=== PATIENT | female | born 1945 ===

== ENCOUNTER 2017-08-30 08:01 | Day surgery (SDC) | payer BC ==
[2017-08-27 09:34] VITALS: BMI 23.2
[2017-08-30] MEDS ORDERED: Propofol 10 mg/ml Inj (20 ML) ONE (09:16)
[2017-08-30] MEDS ORDERED: Succinylcholine Chloride 20 mg/ml Syr (5 ml) IV ONE (09:19)
[2017-08-30] MEDS ORDERED: Rocuronium 10 mg/ml (5 ml) ONE (09:19)
[2017-08-30] MEDS ORDERED: Bupivacaine-Epi 0.5%-1:200,000 PF Inj IJ ONE (09:45)
[2017-08-30] MEDS ORDERED: ceFAZolin IV 1 gm in Dextrose 1 GM/50 ML BAG IVPB ONE (09:59)
[2017-08-30] MEDS ORDERED: Neostigmine Methylsulfate 3mg/3ml Syringe IV ONE (10:13)
[2017-08-30] MEDS ORDERED: Oxycodone/Acetaminophen 5/325 mg Tab PO PRN (10:54)
[2017-08-30] MEDS ORDERED: HYDROmorphone 0.5 mg/0.5 ml ISec IVP PRN (10:56)
--- NOTE | 2017-08-30 10:58 | PCM.SURG1 ---
Surgeon's Initial Post Op Note - Surgeon's Notes Surgeon: Dr. Malhotra Supervisor Capacitor Processing: zaid Mcgovern PGY2 Type of Anesthesia: General Endo Pre-Operative Diagnosis: Cholelithiasis Operative Findings: large gallstones Post-Operative Diagnosis: Same Operation Performed: Lap daniel Specimen/Specimens Removed: Gallbladder Estimated Blood Loss: EBL {In ML}: 10 Blood Products Given: N/A Drains Used: No Drains Post-Op Condition: Good Date of Surgery/Procedure: 08/30/17 Time of Surgery/Procedure: 10:57
[2017-08-30] MEDS ORDERED: Lactated Ringer's 1,000 ML IV SCH (11:00)
[2017-08-30] MEDS ORDERED: Lactated Ringer's 500 ML IV ONE (12:00)
[2017-08-30 13:20] VITALS: BP 117/62; PULSE 84; RESP 15; TEMP 97.6; O2SAT 96
--- NOTE | 2017-08-30 20:23 | OP ---
PROCEDURE DATE: 08/30/2017 PREOPERATIVE DIAGNOSES: Chronic cholecystitis and cholelithiasis. POSTOPERATIVE DIAGNOSES: Chronic cholecystitis and cholelithiasis. PROCEDURE PERFORMED: Laparoscopic cholecystectomy. SURGEON: Mark Malhotra MD. FOOD SAFETY SCIENTIST: Danyelle Mcgovern. FINDINGS: The gallbladder was markedly distended, it was enlarged containing multiple large stones, common duct appeared to be within normal limits. No other pathology noted. DESCRIPTION OF PROCEDURE: Under general anesthesia, the patient was prepared and draped in the usual sterile fashion. CO2 was insufflated through a Veress needle inserted at the umbilicus. A 10 mm trocar was then inserted through which a laparoscope was inserted. Under direct vision, a 5 mm epigastric port and a 5 mm right upper quadrant ports were inserted. The patient was placed in the reversed Trendelenburg position, turned over towards the left side. Fundus was grasped, traction was applied. Cystic duct and cystic arteries were isolated. They were transected between Hemoclips and gallbladder was then removed from the liver bed with electrocautery. All the bleeders in the liver bed were electrocauterized and then irrigated with large amount of saline solution. The gallbladder was then extracted through the umbilical port. Multiple stones were necessary to be taken from the gallbladder to afford its extraction from the small incision. The area was irrigated with normal saline solution. No bleeding was noted. Irrigating fluid was suctioned out. CO2 allowed to escape from the peritoneal cavity. Trocars were removed. The wound closed in a routine fashion. Estimated blood loss, about 10 mL. No complications. Mark Malhotra MD
== END 2017-08-30 15:09 | disposition home or self-care (01) ==
LOC: C.SDS 08:01
PROVIDERS: ATTEND Surgery
DX: K80.10 Calculus of gallbladder with chronic cholecystitis without obstruction (principal); I10 Essential (primary) hypertension; E78.5 Hyperlipidemia, unspecified; Z79.899 Other long term (current) drug therapy
CPT/HCPCS: 47562; 88304; J0690; J1170; J2001; J2405; J2704; J2710; J3010; J7120